=== PATIENT | male | born 1955 | race Caucasian/White ===

== ENCOUNTER 2019-03-16 12:09 | Outpatient (CLI) | payer BC ==
--- NOTE | 2019-03-16 13:47 | MRI ---
MR OF THE RIGHT SHOULDER WITHOUT IV CONTRAST: 03/16/19 INDICATION: Arthritis of the right acromioclavicular joint with right shoulder pain and painful and limited range of motion. COMPARISON: None. TECHNIQUE: Multiplanar and multisequence MR images were obtained of the right shoulder without IV contrast. FINDINGS: There is a high grade bursal surface tear involving the mid supraspinatus tendon measuring 0.7 x 2.5 cm greatest AP and mediolateral dimensions. The tear involves the bursal surface of the tendon and ar ises approximately 2.5 cm from the level of the footprint. This is best seen on image 9 of series 7 a nd image 11 of series 5. There is marked diffuse muscular edema involving the supraspinatus suspiciou s for component of myositis or mild strain. There is severe tendinosis of the supraspinatus and moder ate tendinosis of the subscapularis. There is mild tendinosis of the intra-articular biceps tendon with prominent degenerative intrasubsta nce signal of the biceps anchor. There is a degenerative tear involving the superior, posterior, post erior inferior glenoid labrum with small paralabral cysts seen along the superior glenoid labrum era uring 4 mm on image 9 of series 7 and along the posterior inferior aspect of the glenoid labrum measu ring 6.7 mm. There is moderate chondrosis of the glenohumeral joint. There is severe AC joint osteoarthrosis with prominent joint hypertrophy and an inferior projecting o steophyte off the distal clavicle causing moderate encroachment. There is moderate tendinosis of the subscapularis. Biceps tendon is located. The inferior glenohumera l ligamentous complex is intact. No lymphadenopathy is evident. IMPRESSION: 1. High grade bursal surface tear of the supraspinatus with associated muscular strain of the horn praspinatus. There is severe tendinosis of the supraspinatus. There is severe AC joint osteoarthrosis with inferior projecting osteophyte and joint hypertrophy causing moderate encroachment. 2. There is degenerative fraying of the superior glenoid labrum with degenerative labral tears i nvolving the posterior superior, posterior and posterior inferior labrum in addition. A small paralab ral cyst seen along the superior and posterior inferior aspect of the glenoid margin. 3. Prominent tendinosis of the subscapularis and infraspinatus. Prominent degenerative signal of the biceps anchor and mild tendinosis of the intra-articular biceps tendon. 4. Fluid in the subarachnoid subacromial space may reflect a component of bursitis. POS: OFF
== END 2019-03-16 12:10 | disposition home or self-care (01) ==
LOC: BICMRI 12:09
PROVIDERS: ATTEND Orthopaedic Surgery
DX: M19.011 Primary osteoarthritis, right shoulder (principal); M75.101 Unspecified rotator cuff tear or rupture of right shoulder, not specified as traumatic; M75.81 Other shoulder lesions, right shoulder; M24.811 Other specific joint derangements of right shoulder, not elsewhere classified; M85.611 Other cyst of bone, right shoulder; M75.21 Bicipital tendinitis, right shoulder